=== PATIENT | female | born 1970 | race Caucasian/White ===

== ENCOUNTER 2019-06-04 11:58 | Day surgery (SDC) | payer BC ==
[2019-06-03 14:36] VITALS: BMI 25.6
[2019-06-04 13:09] VITALS: TEMP 98.2
[2019-06-04 15:24] VITALS: BP 111/62; PULSE 81
--- NOTE | 2019-06-06 17:03 | PATH ---
Surgical Pathology Report Patient Name: ATUL DUENAS [facility]. Rec. #: [id number] /Age/Gender: 1970 (Age: 49) / F Account: [id number] Location: U-ENDOSCOPY Taken: 06/04/2019 Received: 06/05/2019 Reported: 06/06/2019 Physicians: Marlen Dent M.D. Specimen(s) Received A: STOMACH B: DISTAL ESOPHAGUS C: PROXIMAL ESOPHAGUS D: RECTAL POLYP Clinical History Dysphagia, screening Postoperative diagnosis: Gastritis, colon polyp Final Diagnosis A. Stomach, biopsy: Gastric body mucosa with MILD chronic gastritis. Immunohistochemical STAIN FOR H. Pylori is negative. B. Distal esophagus, biopsy: Minute fragments of Squamous MUCOSA WITHOUT SIGNIFICANT pathologic findings. C. Proximal esophagus, biopsy: Squamous MUCOSA WITHOUT SIGNIFICANT pathologic findings. D. Rectal polyp, biopsy: Tubular adenoma. Positive and negative controls (internal if applicable) show appropriate results. Electronically Signed Leslye Mckeon M.D. Gross Description A. Received in formalin, labeled "biopsy stomach" are 4 escobar, irregular portions of soft tissue ranging from 0.2-0.5 cm. in greatest dimension. The specimens are submitted in toto in one cassette. B. Received in formalin, labeled "biopsy distal esophagus" are 2 escobar, irregular portions of soft tissue averaging 0.3 cm. in greatest dimension. The specimens are submitted in toto in one cassette. C. Received in formalin, labeled "biopsy proximal esophagus" are 2 escobar, irregular portions of soft tissue measuring 0.2 and 0.3 cm. in greatest dimension. The specimens are submitted in toto in one cassette. D. Received in formalin, labeled "biopsy rectal polyp" is a escobar, irregular portion of soft tissue measuring 0.3 cm. in greatest dimension. The specimen is submitted in toto in one cassette. 06/05/2019 saudi06/05/2019
== END 2019-06-04 15:32 | disposition home or self-care (01) ==
LOC: JASU-ENDO 11:58
PROVIDERS: ATTEND Internal Medicine Gastroenterology
PROC: 0DB38ZX Excision of Lower Esophagus, Via Natural or Artificial Opening Endoscopic, Diagnostic (ICD-10-PCS; 2019-06-04)
PROC: 0DB68ZX Excision of Stomach, Via Natural or Artificial Opening Endoscopic, Diagnostic (ICD-10-PCS; 2019-06-04)
PROC: 0DB18ZX Excision of Upper Esophagus, Via Natural or Artificial Opening Endoscopic, Diagnostic (ICD-10-PCS; 2019-06-04)
PROC: 0DJD8ZZ Inspection of Lower Intestinal Tract, Via Natural or Artificial Opening Endoscopic (ICD-10-PCS; principal; 2019-06-04 14:00)
DX: Z12.11 Encounter for screening for malignant neoplasm of colon (principal); D12.8 Benign neoplasm of rectum; K29.50 Unspecified chronic gastritis without bleeding
CPT/HCPCS: 88305-TC; 88342-TC